=== PATIENT | male | born 1990 | race Caucasian/White ===

== ENCOUNTER 2022-02-13 03:49 | Emergency (ER) | payer OTHER ==
[~2022-02-13 03:49] MED LIST: ASPIRIN CHEWABL81 MG PO; AUGMENTIN 875-1 EACH PO; COL-RITE250 MG PO; NAPROSYN500 MG PO; NITROSTAT0.4 MG SL; NORCO 5-325 TA1 EACH PO; PERCOCET 7.5-31 EACH PO; ZOFRAN4 MG PO
[2022-02-13] MEDS ORDERED: BACITRACIN28.4 GM TP (06:12)
== END 2022-02-13 06:21 | disposition home or self-care (01) ==
LOC: ER1 03:49
DX: T25.221A Burn of second degree of right foot, initial encounter (principal); F17.200 Nicotine dependence, unspecified, uncomplicated; X11.8XXA Contact with other hot tap-water, initial encounter; Z88.0 Allergy status to penicillin; Y92.89 Other specified places as the place of occurrence of the external cause; Y99.0 Civilian activity done for income or pay
CPT/HCPCS: 16020; 90471; 90715; 99283

== ENCOUNTER → 2022-02-16 | Outpatient (CLI) | payer OTHER ==
[~2022-02-16] MED LIST changes: +BACITRACIN28.4 GM TP
== END ==
LOC: WCC 06:49
DX: T25.221A Burn of second degree of right foot, initial encounter (principal); T31.0 Burns involving less than 10% of body surface; I10 Essential (primary) hypertension; E11.628 Type 2 diabetes mellitus with other skin complications; Z72.0 Tobacco use; Z88.0 Allergy status to penicillin

== ENCOUNTER → 2022-02-20 | Outpatient (CLI) | payer OTHER | LOC: WCC 08:25 | DX: T25.221A Burn of second degree of right foot, initial encounter (principal); T31.0 Burns involving less than 10% of body surface; E11.65 Type 2 diabetes mellitus with hyperglycemia; I10 Essential (primary) hypertension; E11.628 Type 2 diabetes mellitus with other skin complications; Z72.0 Tobacco use; Z88.0 Allergy status to penicillin ==

== ENCOUNTER → 2022-03-02 | Outpatient (CLI) | payer OTHER | LOC: WCC 08:05 | DX: T25.221A Burn of second degree of right foot, initial encounter (principal); T31.0 Burns involving less than 10% of body surface; E11.65 Type 2 diabetes mellitus with hyperglycemia; I10 Essential (primary) hypertension; E11.628 Type 2 diabetes mellitus with other skin complications; M25.751 Osteophyte, right hip; Z72.0 Tobacco use; Z88.0 Allergy status to penicillin ==

== ENCOUNTER → 2022-03-16 | Outpatient (CLI) | payer OTHER | LOC: WCC 07:36 | DX: T25.211D Burn of second degree of right ankle, subsequent encounter (principal); Z72.0 Tobacco use; I10 Essential (primary) hypertension; E11.628 Type 2 diabetes mellitus with other skin complications; M25.571 Pain in right ankle and joints of right foot; E11.65 Type 2 diabetes mellitus with hyperglycemia | CPT/HCPCS: G0463 ==